=== PATIENT | male | born 1940 | race Caucasian/White ===

== ENCOUNTER → 2016-12-05 | Outpatient (CLI) | payer MEDICARE ==
[~2016-12-05] VITALS: Ht 162.6 cm; Wt 75.3 kg
[~2016-12-05] MED LIST: AMLO5TAB2 PO; ATOR40TA PO; LIDOCAINE 2% INJ 100 MG/5 ML SDV (FOR ANES.) As Ordered ONE; MAVI4TAB PO; NS 1,000 ML IV SCH; PROPOFOL 500 MG/50 ML VIAL As Ordered ONE
--- NOTE | 2016-12-05 09:35 | ROOR ---
Patient Name: Royal Su Procedure Date: 12/05/2016 9:03 AM Date of : 1940 Age: 76 Room: [facility] Gender: Male Note Status: Finalized Procedure: Colonoscopy to Cecum + Cold Snare Polypectomy Indications: Screening in patient at increased risk: Colorectal cancer in sister before age 60 Providers: Royal Rey MD Referring MD: IMMANUEL CARRASCO JR, MD Requesting Provider: Medicines: Monitored Anesthesia Care Complications: No immediate complications. Procedure: Pre-Anesthesia Assessment: - The heart rate, respiratory rate, oxygen saturations, blood pressure, adequacy of pulmonary ventilation, and response to care were monitored throughout the procedure. The Colonoscope was introduced through the anus and advanced to the cecum, identified by appendiceal orifice and ileocecal valve. The colonoscopy was performed without difficulty. The patient tolerated the procedure well. The quality of the bowel preparation was excellent. Findings: The perianal and digital rectal examinations were normal. Non-bleeding internal hemorrhoids were found during retroflexion. The hemorrhoids were small and Grade I (internal hemorrhoids that do not prolapse). Multiple small and large-mouthed diverticula were found in the recto-sigmoid colon, in the sigmoid colon and in the descending colon. A diminutive polyp was found at 20 cm proximal to the anus. The polyp was sessile. The polyp was removed with a cold snare. Resection and retrieval were complete. A medium polyp was found at 40 cm proximal to the anus. The polyp was sessile. The polyp was removed with a cold snare. Resection and retrieval were complete. The exam was otherwise without abnormality. Impression: - Non-bleeding internal hemorrhoids. - Diverticulosis in the recto-sigmoid colon, in the sigmoid colon and in the descending colon. - One diminutive polyp at 20 cm proximal to the anus, removed with a cold snare. Resected and retrieved. - One medium polyp at 40 cm proximal to the anus, removed with a cold snare. Resected and retrieved. - The examination was otherwise normal. - The exam was otherwise normal to the cecum. Recommendation: - Patient has a contact number available for emergencies. The signs and symptoms of potential delayed complications were discussed with the patient. Return to normal activities tomorrow. Written discharge instructions were provided to the patient. - High fiber diet. - Discharge patient to home. - Continue present medications. - Await pathology results. - Telephone GI clinic for pathology results in 1 week. - Repeat colonoscopy for symptoms only. - Return to referring physician. - The findings and recommendations were discussed with the patient's family. Royal Rey MD Royal Rey MD 12/05/2016 9:35:20 AM This report has been signed electronically. Number of Addenda: 0 Note Initiated On: 12/05/2016 9:03 AM Estimated Blood Loss: Estimated blood loss: none.
[2016-12-05 09:50] VITALS: BP 134/84
== END | disposition home or self-care (01) ==
LOC: M OPP 08:05
PROVIDERS: ATTEND Internal Medicine Gastroenterology
DX: Z12.11 Encounter for screening for malignant neoplasm of colon (principal); Z80.0 Family history of malignant neoplasm of digestive organs; K64.0 First degree hemorrhoids; D12.5 Benign neoplasm of sigmoid colon; I10 Essential (primary) hypertension; J44.9 Chronic obstructive pulmonary disease, unspecified; E78.00 Pure hypercholesterolemia, unspecified; Z97.4 Presence of external hearing-aid; Z97.2 Presence of dental prosthetic device (complete) (partial); Z95.5 Presence of coronary angioplasty implant and graft; Z87.891 Personal history of nicotine dependence; Z79.899 Other long term (current) drug therapy; Z91.010 Allergy to peanuts

== ENCOUNTER → 2017-09-10 | Outpatient (REF) | payer MEDICARE ==
[~2017-09-10] MED LIST changes: -ATOR40TA PO; +ATOR40TA75 PO; -LIDOCAINE 2% INJ 100 MG/5 ML SDV (FOR ANES.) As Ordered ONE; -NS 1,000 ML IV SCH; -PROPOFOL 500 MG/50 ML VIAL As Ordered ONE
== END ==
LOC: M LAB REF 13:07
PROVIDERS: ATTEND Physician Assistant
DX: J02.9 Acute pharyngitis, unspecified (principal)

== ENCOUNTER → 2019-12-13 | Outpatient (REF) | payer MEDICARE ==
[~2019-12-13] MED LIST changes: -AMLO5TAB2 PO; +AMLO5TAB6 PO
== END ==
LOC: M LAB REF 09:22
PROVIDERS: ATTEND Dermatology
DX: C44.629 Squamous cell carcinoma of skin of left upper limb, including shoulder (principal)
CPT/HCPCS: 11102; 88305; G0463

== ENCOUNTER → 2019-12-29 | Outpatient (REF) | payer MEDICARE | LOC: M LAB REF 18:43 | PROVIDERS: ATTEND Dermatology | DX: C44.629 Squamous cell carcinoma of skin of left upper limb, including shoulder (principal) ==

== ENCOUNTER → 2022-04-04 | Outpatient (REF) | payer MEDICARE ==
[~2022-04-04] MED LIST changes: +AMLO1TAB24 PO; -AMLO5TAB6 PO
== END ==
LOC: M SFHCWAGY 18:43
PROVIDERS: ATTEND Nurse Practitioner Family
DX: L82.1 Other seborrheic keratosis (principal)

== ENCOUNTER 2024-10-11 05:56 | Emergency (ER) | payer MEDICARE, OTHER ==
[~2024-10-11] VITALS: Ht 162.6 cm; Wt 71.4 kg
[2024-10-11 07:40] LABS: BASO % 0.2 % (0.0-1.0); EOS % 0.1 % (0.0-3.0); HEMATOCRIT 39.7 % (42.0-52.0); HEMOGLOBIN 13.2 g/dl (13.5-17.5); LYMPH # 1.4 10^3/uL (1.5-5.0); LYMPH % 8.9 % (24.0-44.0); MEAN CORPUSCULAR HEMOGLOBIN 31.7 pg (27.0-33.0); MEAN CORPUSCULAR HGB CONC 33.2 g/dl (32.0-36.5); MEAN CORPUSCULAR VOLUME 95.2 fl (80.0-96.0); MONO # 1.4 10^3/uL (0.0-0.8); MONO % 8.9 % (2.0-8.0); NEUTROPHILS # 12.3 10^3/uL (1.5-8.5); NEUTROPHILS % 81.1 % (36.0-66.0); PLATELET COUNT, AUTOMATED 182 10^3/uL (150-450); RED BLOOD COUNT 4.17 10^6/uL (4.30-6.10); WHITE BLOOD COUNT 15.2 10^3/uL (4.0-10.0)
[2024-10-11 08:04] LABS: LIPASE 19 U/L (12-53)
[2024-10-11 08:06] LABS: ALBUMIN 3.6 G/DL (3.2-5.2); ALKALINE PHOSPHATASE 112 U/L (40-129); ALT/SGPT 18 U/L (7.0-40); AST/SGOT 13 U/L (<34); BILIRUBIN,DIRECT 0.4 MG/DL (<0.4); BILIRUBIN,TOTAL 0.8 MG/DL (0.3-1.2); BLOOD UREA NITROGEN 15 MG/DL (9-23); CALCIUM LEVEL 9.6 MG/DL (8.3-10.6); CARBON DIOXIDE LEVEL 26 MMOL/L (20-31); CHLORIDE LEVEL 105 MMOL/L (98-107); CREATININE FOR GFR 1.02 MG/DL (0.70-1.30); GLOMERULAR FILTRATION RATE > 60.0 (>35); GLUCOSE, FASTING 119 MG/DL (74-106); SODIUM LEVEL 137 MMOL/L (136-145); TOTAL PROTEIN 7.1 G/DL (5.7-8.2)
[2024-10-11] MEDS: METOPROLOL 5 MG/5 ML VIAL IV SCH (09:23)
[2024-10-11] MEDS ORDERED: TRAN1TAB56 PO (09:39)
[2024-10-11] MEDS ORDERED: STIO1AER INH (09:39)
[2024-10-11 09:40] VITALS: BP 165/95
[2024-10-11] MEDS ORDERED: HOME MED LIST COMPLETE! XX SCH (09:40)
[2024-10-11] MEDS: MORPHINE 2 MG/ML 1ML VIAL IV ONE (10:22)
[2024-10-11] MEDS: niCARdipine IV 40 MG in IV 1 EA IV SCH (11:49)
[2024-10-11 12:00] VITALS: TEMP 99.4
[2024-10-11 12:21] VITALS: O2SAT 93
[2024-10-11 12:23] VITALS: BP 135/76
== END 2024-10-11 12:30 | disposition short-term general hospital (02) ==
LOC: M ED 05:56
DX: I71.40 Abdominal aortic aneurysm, without rupture, unspecified (principal); I10 Essential (primary) hypertension; E78.5 Hyperlipidemia, unspecified; N28.1 Cyst of kidney, acquired; K57.30 Diverticulosis of large intestine without perforation or abscess without bleeding; Z79.899 Other long term (current) drug therapy; Z91.010 Allergy to peanuts

== ENCOUNTER → 2025-04-11 | Outpatient (CLI) | payer MEDICARE ==
[~2025-04-11] MED LIST changes: +STIO1AER INH; +TRAN1TAB56 PO
[2025-04-11 10:48] LABS: CALCIUM LEVEL 9.8 MG/DL (8.3-10.6); CREATININE FOR GFR 1.35 MG/DL (0.70-1.30); GLOMERULAR FILTRATION RATE 52.1 (>35); POTASSIUM SERUM 4.5 MMOL/L (3.5-5.1)
== END ==
LOC: M LAB 09:49
PROVIDERS: ATTEND Physician Assistant
DX: I71.40 Abdominal aortic aneurysm, without rupture, unspecified (principal)

== ENCOUNTER → 2025-11-22 | Outpatient (CLI) | payer MEDICARE ==
[2025-11-22 09:59] LABS: CALCIUM LEVEL 10.0 MG/DL (8.3-10.6); CARBON DIOXIDE LEVEL 30.0 MMOL/L (20-31); CHLORIDE LEVEL 105.0 MMOL/L (98-107); CREATININE FOR GFR 1.3 MG/DL (0.70-1.30); GLOMERULAR FILTRATION RATE 54.5 (>35); POTASSIUM SERUM 4.7 MMOL/L (3.5-5.1); SODIUM LEVEL 143.0 MMOL/L (136-145)
== END ==
LOC: M LAB 08:39
PROVIDERS: ATTEND Physician Assistant
DX: I71.40 Abdominal aortic aneurysm, without rupture, unspecified (principal)